=== PATIENT | male | born 1940 | race Caucasian/White ===

== ENCOUNTER 2016-08-11 21:40 | Inpatient (IN) ==
[2016-08-12] MEDS ORDERED: Acetaminophen 325 MG TABLET PO PRN (01:05)
--- NOTE | 2016-08-12 01:09 | Internal Med History&Physical ---
<Sandra Tong - Last Filed: 08/12/16 02:37> Date of Encounter: 08/12/16 Time of Encounter: 00:30 Assessment and Plan (1) Syncope Current visit: No Status: Acute - Likely secondary to hypoglycemia and/or dehydration given patient reports not eating for long time prior to syncope. Vasovagal is also possible but less likely given lack of aura prior to syncope. - Feel less likely cardiogenic given it's not associated with exertion. But given his significant cardiovascular risk factors (DM, HTN and hyperlipidemia), will still check echocardiogram and telemetry monitoring to further potential cardiac causes. - Unlikely stroke given lack of neuro deficit and negative CT head. - Per neurology note from 2013 on [facility], patient was seen for syncopal episode at that time and seizure disorder was unlikely given unremarkable EEG and brain MRI. - Check orthostatic vital signs. - Possible discharge if work-up for potential cardiac causes are negative. Qualifiers: Syncope type: unspecified Qualified Code(s): R55 - Syncope and collapse (2) Elevated troponin Current visit: Yes Status: Acute - Troponin 0.06 in [facility] but no chest pain/discomfort nor significant ischemic change on EKG. - Likely secondary to renal insufficiency. - Continue to trend troponin. (3) Renal insufficiency Current visit: Yes Status: Acute - SCr 1.79 - Per neurology note from 2013 on [facility], patient has renal insufficiency at that time. - Hydration with IV NS and avoid nephrotoxin. - Continue to monitor renal function and electrolytes. (4) Leukocytosis Current visit: Yes Status: Acute - WBC 19.3 on admission. - Unknown etiology at this time. - Will obtain blood cultures and blood smear for further evaluation. Qualifiers: Leukocytosis type: unspecified Qualified Code(s): D72.829 - Elevated white blood cell count, unspecified (5) Hypertension Current visit: Yes Status: Chronic - BP 185/125 on admission. - History of HTN but not on medications at home. - Will start Norvasc 10 mg PO daily and Coreg 12.5 mg PO BID. - Continue to monitor. Qualifiers: Hypertension type: essential hypertension Qualified Code(s): I10 - Essential (primary) hypertension (6) Diabetes mellitus Current visit: Yes Status: Chronic - History of DM but currently not on any medications. - Check Hgb A1C. Qualifiers: Diabetes mellitus type: type 2 Diabetes mellitus complication status: with unspecified complications Diabetes mellitus correction insulin use: without technician terminal and repeater use Qualified Code(s): E11.8 - Type 2 diabetes mellitus with unspecified complications (7) Hyperlipidemia Current visit: Yes Status: Chronic - Check lipid panel. Qualifiers: Hyperlipidemia type: unspecified Qualified Code(s): E78.5 - Hyperlipidemia , unspecified (8) DVT prophylaxis Current visit: Yes Status: Acute - SQ heparin. Internal Medicine - H&P: HPI Chief complaint: Syncope Admitted From: Emergency Dept ([facility]) Plans for Post Hospital Care: Home History of present illness: Mr. Kelly is a 75 year old homeless male with PMH of DM, HTN and hyperlipidemia. Patient was sent to [facility] after a syncopal episode. Patient is a poor historian and cannot recall exactly what happened and how long he passed out. What patient can remember is that he was sitting and denies lightheadedness, vision change or aura before the syncope but he is not sure if he tried to get up at that time. Patient admits not eating for long time prior to syncope. Patient's [id number] witnessed the event and per patient, he did not mention anything like jerking, tongue biting or incontinence. Patient reports no similar syncopal episode or history of seizure in the past. Patient denies chest pain/discomfort, palpitation, dyspnea, fever, chills, recent vision change, hearing change, numbness/tingling, focal weakness. Patient is full code. Past Med Surg Social Fam HX - Past Medical History Medical history: diabetes, hyperlipidemia, hypertension Psychiatric history: no psych history - Past Surgical History Surgical History: no surgical history - Social History Smoking Status: Former smoker Alcohol use: none Drug use: none - Family History Mother History Unknown: Yes Name: Carole Family Member Ethnicity: Non- Living Status: Age at : 94 Father Living Status: Hx Family Cardiac Disorders: Yes ([place]) Internal Medicine - H&P: Meds Allergies No Known Allergies Allergy (Verified 08/11/16 15:48) All Systems PM: A 10-system review of systems was performed and is negative for pertinent findings except as documented above in the HPI. - Constitutional Constitutional: no anorexia, no chills, no fever(s), no weight loss - EENT Eyes: no change in vision Ears: no decreased hearing Nose, mouth and throat: no dysphagia, no odynophagia - Cardiovascular Cardiovascular ROS IM: syncope, no chest pain, no diaphoresis, no lightheadedness, no palpitations - Respiratory Respiratory: no cough, no dyspnea, no hemoptysis - Gastrointestinal Gastrointestinal: no abdominal pain, no diarrhea, no hematochezia, no melena, no nausea, no vomiting - Genitourinary Genitourinary ROS male: no difficulty urinating, no dysuria, no hematuria - Musculoskeletal Musculoskeletal ROS IM: no arthralgias, no myalgias - Integumentary Integumentary IM: no pruritus, no rash - Neurological Neurological ROS: no focal weakness, no numbness, no tingling - Hematologic/Lymphatic Hematologic/Lymphatic: no easy bleeding, no easy bruising - Constitutional General appearance: Present: cooperative, disheveled, A&O X 3, no acute distress , answers questions appropriately - Head Head exam: Present: atraumatic, normocephalic - Eye Eye exam: Present: PERRL, conjuntiva pink, sclera anicteric - Neck Neck exam general surgery: Present: supple, trachea midline. Absent: lymphadenopathy - Respiratory Respiratory exam: Present: CTAB. Absent: accessory muscle use, rales, rhonchi, wheezes - Cardiovascular Cardiovascular exam: Present: +S1, +S2, tachycardia. Absent: diastolic murmur, gallop, rubs, systolic murmur - GI/Abdominal GI/Abdominal exam: Present: normal bowel sounds, soft, no peritoneal signs. Absent: distended, tenderness - Extremities Exam Extremities exam: Present: warm, radial pulses palpable and symetrical. Absent : calf tenderness, cyanotic, pedal edema - Neurological Exam Neurological exam: Present: CN II-XII intact, oriented X3, no focal deficits. Absent: pronater drift, facial droop, speech deficit - Skin Skin exam: Present: dry, intact, warm Internal Med - H&P Results - Labs CBC & Chem 7: 08/12/16 01:45 08/12/16 01:45 <Juanito Alonso - Last Filed: 08/12/16 06:12> Date of Encounter: 08/12/16 Assessment and Plan (1) Hypokalemia Current visit: Yes Status: Acute Internal Medicine - H&P: HPI History of present illness: Mr. Kelly is a 75 year old male All Systems PM: A 10-system review of systems was performed and is negative for pertinent findings except as documented above in the HPI. - Constitutional Vitals: Temp Pulse Resp BP Pulse Ox 98.6 F 89 14 166/112 90 08/12/16 04:57 08/12/16 04:57 08/12/16 04:57 08/12/16 04:57 08/12/16 04:57 Internal Med - H&P Results - Labs CBC & Chem 7: 08/12/16 01:45 08/12/16 01:45 Labs: Short CBC 08/12/16 Range/Units 01:45 WBC 14.7 H (4.3-11.1) K/mcL Hgb 16.9 (12.9-16.9) g/dL Hct 46.7 (37.5-50.1) % Plt Count 328 (140-400) K/mcL Neutrophils # 11.3 H (1.6-8.9) K/mcL BMP 08/12/16 01:45 Sodium 138 Potassium 3.3 L Chloride 102 Carbon Dioxide 26 BUN 22 Creatinine 1.69 H Glucose 123 H Calcium 9.1 Cardiac Enzymes 08/12/16 Range/Units 01:45 Troponin I 0.07 H* (0-0.03) ng/mL - EKG Data -: EKG Interpreted by Myself - Diagnostic Studies Chest x-ray Status: image reviewed by me CT scan - head Status: image reviewed by me - Attending Attestation I personally interviewed and examined this patient and my medical decision- making was reviewed with the Resident Physician. I agree with the documented findings, disposition and treatment plan as described.
[2016-08-12 01:56] LABS: Basophils # 0.1 K/mcL (0.0-0.2); Basophils % 0.4 %; Eosinophils % 0.2 %; Hematocrit 46.7 % (37.5-50.1); Hemoglobin 16.9 g/dL (12.9-16.9); Immature Granulocytes % 0.3 % (0-4); Lymphocytes % 13.8 %; Mean Corpuscular HGB Conc 36.2 g/dL (31.6-35.5); Mean Corpuscular Hemoglobin 30.3 pg (28.0-33.3); Mean Corpuscular Volume 83.8 fL (83.0-100.0); Mean Platelet Volume 9.3 fL (9.4-12.4); Monocytes # 1.2 K/mcL (0.0-1.3); Monocytes % 8.4 %; Neutrophils # 11.3 K/mcL (1.6-8.9); Platelet Count 328 K/mcL (140-400); Red Blood Count 5.57 M/mcL (4.19-5.50); Red Cell Distribution Width 13.1 % (11.5-14.5); Segmented Neutrophils % 76.9 %
[2016-08-12] MEDS ORDERED: 0.9 % Sodium Chloride 1,000 ML IVC SCH (02:00)
[2016-08-12 02:04] LABS: Calcium 9.1 mg/dL (8.6-10.8); Potassium 3.3 mEq/L (3.5-4.5)
[2016-08-12] MEDS: amLODIPine 5 MG TABLET PO SCH ×2 (03:31→07:50)
[2016-08-12 03:36] LABS: Hemoglobin A1C 6.5 %
[2016-08-12 03:43] LABS: Chol/HDL Ratio 7.4 (0-4.9)
[2016-08-12] MEDS: *HR* Heparin 5,000 UNIT/ML VIAL SQ SCH ×3 (05:49→21:49)
[2016-08-12] MEDS: Aspirin 81 MG TAB.CHEW PO SCH (07:50)
--- NOTE | 2016-08-12 11:03 | ECHO - Doppler Report ---
Echocardiogram Name: Nima Kelly Date of Study: 08/12/2016 Date: 1940 Ht: 74.0 in Medical Record#: [id number] Age: 75 Wt: 202.0 lb Gender: Male BSA: 2.18 Order #: [id number] Location: [facility] Room #: 2NE21 Reading Physician: Bernardo Tran MD, [facility] Printing Roller Polisher: Abhi Rock RDCS Ordering Physician: Sandra Tong DO Primary Physician: Indications: Syncope Impressions: LVEF 55-60%. No pulmonary hypertension. Mild left ventricular diastolic dysfunction. The aortic root is mildly dilated. The aortic root is 3.8cm cm. No significant valvular dysfunction. Left Ventricular Wall Motion: Rest Echo Findings All wall segments showed normal motion. Findings: Study Quality * Technically adequate exam. Right Ventricle * Normal right ventricular structure and function. Left Atrium * Normal left atrial size. Right Atrium * Normal right atrial size. Mitral Valve * Normal mitral valve structure and function. Interatrial Septum * No evidence of PFO by color Doppler. Pericardium * The pericardium appears normal. Tricuspid Valve * Trace tricuspid regurgitation. * Estimated RVSP is 25 mmHg. * Estimated RA pressure is 3-5 mmHg. * No pulmonary hypertension. * No tricuspid stenosis. Aortic Valve * Aortic valve not well visualized. * No aortic regurgitation. * No aortic stenosis. Pulmonic Valve * No pulmonic regurgitation. * No pulmonic stenosis. * Pulmonic valve is not well visualized. Left Ventricle * LVEF 55-60%. * Mild left ventricular diastolic dysfunction. IVC * Normal IVC dimensions and inspiratory collapse. Aorta * The aortic root is mildly dilated. * The aortic root is 3.8cm cm. History Hypertension Measurements: BP: 166/ 112 2D Normal Values RVIDd: 3.70 cm <2.7 cm IVSd: 1.30 cm 0.6 - 1.0 cm LVIDd: 4.60 cm 3.7 - 5.6 cm LVPWd: 1.10 cm 0.6 - 1.1 cm LVIDs: 3.40 cm 1.5 - 3.6 cm AO: 3.80 cm < 4.0 cm LA: 2.90 cm 2.0 - 4.0cm %FS: 26.10 cm >25 % LA volume: 37 Mitral Valve Peak E:.57 m/sec Peak A:1.05 m/sec E/A Ratio:0.5 Peak E' Lat Alex:3.61 cm/s Peak E' Med Alex:3.8 cm/s E/E' Lat Ratio:15.7 E/E' Med Ratio:14.9 Tricuspid Valve TV Regurg Peak Grad: 25.00mmHg TV Regurg Peak Alex: 2.48m/sec Updated by Bernardo Tran MD, [facility] on 08/12/2016 10:58:24 AM electronically signed on 08/12/2016 10:58:46 AM with status of Final Wall Motion Pinedo: 1=Normal, 2=Hypokinesis, 3=Akinesis, 4=Dyskinesis, 5=Aneurysmal, 6=Hyperkinetic, X=Not Visualized (Blank)=Missing
--- NOTE | 2016-08-12 13:40 | Internal Med Progress Note ---
Date of Encounter: 08/12/16 Time of Encounter: 10:00 - Assessment and plan (1) Syncope Current Visit: No Status: Acute Assessment and plan: Etiology is undetermined. Probably vasovagal syncope. - Continue closely cardiac monitoring to rule out arrhythmia. - Echo to rule out aortic stenosis or other cardiac problem. - Carotid duplex to rule out stenosis. - Hydrate patient with IV fluid. Qualifiers: Syncope type: unspecified Qualified Code(s): R55 - Syncope and collapse (2) Elevated troponin Current Visit: Yes Status: Acute Assessment and plan: Patient has a mild elevated troponin. Patient denies chest pain. Troponin has trend down. Possibly due to renal insufficiency. Patient has no chest pain/ SOB. (3) Renal insufficiency Current Visit: Yes Status: Acute Assessment and plan: No previous creatinine level available. Patient may have CKD. Will continue IV fluid and a follow-up her renal function. (4) Leukocytosis Current Visit: Yes Status: Acute Assessment and plan: Likely reactive, trend down already. No signs of active infection. Qualifiers: Leukocytosis type: unspecified Qualified Code(s): D72.829 - Elevated white blood cell count, unspecified (5) Hypertension Current Visit: Yes Status: Chronic Assessment and plan: Continue amlodipine. At the carvedilol. Hold the losartan and Lasix because of poor renal function. Closely monitor blood pressure. Qualifiers: Hypertension type: essential hypertension Qualified Code(s): I10 - Essential (primary) hypertension (6) Diabetes mellitus Current Visit: Yes Status: Chronic Assessment and plan: Continue diet control. Follow-up glucose level. 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 - Time Spent With Patient 25 - 35 minutes - Subjective Interval history: Patient is a 75-year-old male admitted for syncope. His past medical history is significant for diabetes, hypertension, and hyperlipidemia. He was seen and examined. He is awake alert, oriented 3. Denies dizziness or lightheaded. Patient said that the syncope happened when he sat beside the table, not feeling hungry or palpitation. Patient has no tongue bite, no urinary or fecal incontinence. Orthostatic vitals shows there is no orthostatic hypotension. We will continue cardiac monitoring to rule out arrhythmia, echo and duplex carotid also ordered. - Constitutional Vitals: Temp Pulse Resp BP Pulse Ox 97.9 F 68 15 133/91 95 08/12/16 11:38 08/12/16 11:38 08/12/16 11:38 08/12/16 11:38 08/12/16 11:38 General appearance: Present: cooperative, disheveled, A&O X 3, no acute distress , answers questions appropriately - Head Head exam: Present: atraumatic, normocephalic - Eye Eye exam: Present: PERRL, conjuntiva pink, sclera anicteric Pupils: Present: PERRL - Neck Neck exam general surgery: Present: supple, trachea midline. Absent: lymphadenopathy - Respiratory Respiratory exam: Present: CTAB. Absent: accessory muscle use, rales, rhonchi, wheezes - Cardiovascular Cardiovascular exam: Present: RRR, +S1, +S2. Absent: diastolic murmur, gallop, rubs, systolic murmur - GI/Abdominal GI/Abdominal exam: Present: normal bowel sounds, soft, no peritoneal signs. Absent: distended, tenderness - Extremities Exam Extremities exam: Present: warm, radial pulses palpable and symetrical. Absent : calf tenderness, cyanotic, pedal edema - Neurological Exam Neurological exam: Present: CN II-XII intact, oriented X3, no focal deficits. Absent: pronater drift, facial droop, speech deficit - Skin Skin exam: Present: dry, intact Internal Medicine: Result - Labs CBC & Chem 7: 08/12/16 01:45 08/12/16 01:45 Labs: Short CBC 08/12/16 Range/Units 01:45 WBC 14.7 H (4.3-11.1) K/mcL Hgb 16.9 (12.9-16.9) g/dL Hct 46.7 (37.5-50.1) % Plt Count 328 (140-400) K/mcL Neutrophils # 11.3 H (1.6-8.9) K/mcL BMP 08/12/16 01:45 Sodium 138 Potassium 3.3 L Chloride 102 Carbon Dioxide 26 BUN 22 Creatinine 1.69 H Glucose 123 H Calcium 9.1 Cardiac Enzymes 08/12/16 08/12/16 Range/Units 01:45 07:52 Troponin I 0.07 H* 0.05 H* (0-0.03) ng/mL Consult Discharge Plan - Plan [facility]errals: [facility] [Primary Care Provider] -
[2016-08-12] MEDS ORDERED: *HR* Dextrose 50 % in Water (Syg) 50 ML SYRINGE IVP PRN (14:50)
[2016-08-12] MEDS ORDERED: Dextrose Gel 15 GM PO PRN ×2 (14:50)
[2016-08-12] MEDS ORDERED: D5% in Water 1,000 ML IVC PRN (14:50)
[2016-08-12] MEDS: 0.9 % Sodium Chloride 1,000 ML IVC SCH (15:00)
[2016-08-12] MEDS: Insulin LISPRO 300 UNITS/3 ML VIAL SQ SCH ×2 (16:58→20:13)
[2016-08-13] MEDS: 0.9 % Sodium Chloride 1,000 ML IVC SCH (01:09)
[2016-08-13 04:48] LABS: Basophils # 0.1 K/mcL (0.0-0.2); Basophils % 0.5 %; Eosinophils # 0.1 K/mcL (0.0-0.6); Immature Granulocytes % 0.4 % (0-4); Lymphocytes # 2.2 K/mcL (0.6-4.6); Lymphocytes % 23.5 %; Mean Corpuscular HGB Conc 34.9 g/dL (31.6-35.5); Mean Corpuscular Hemoglobin 30.1 pg (28.0-33.3); Mean Corpuscular Volume 86.3 fL (83.0-100.0); Mean Platelet Volume 9.8 fL (9.4-12.4); Monocytes # 0.8 K/mcL (0.0-1.3); Neutrophils # 6.1 K/mcL (1.6-8.9); Platelet Count 280 K/mcL (140-400); Red Blood Count 4.52 M/mcL (4.19-5.50); Red Cell Distribution Width 13.2 % (11.5-14.5); Segmented Neutrophils % 65.6 %
[2016-08-13 04:52] LABS: Hemoglobin 13.6 g/dL (12.9-16.9)
[2016-08-13 05:03] LABS: Calcium 8.5 mg/dL (8.6-10.8); Potassium 3.6 mEq/L (3.5-4.5)
[2016-08-13] MEDS: *HR* Heparin 5,000 UNIT/ML VIAL SQ SCH ×3 (05:40→21:48)
[2016-08-13] MEDS: amLODIPine 5 MG TABLET PO SCH (08:32)
[2016-08-13] MEDS: Aspirin 81 MG TAB.CHEW PO SCH (08:33)
[2016-08-13] MEDS: Insulin LISPRO 300 UNITS/3 ML VIAL SQ SCH ×4 (08:33→21:47)
--- NOTE | 2016-08-13 12:39 | Internal Med Progress Note ---
Date of Encounter: 08/13/16 Time of Encounter: 10:00 - Assessment and plan (1) Syncope Current Visit: No Status: Acute Assessment and plan: Etiology is undetermined. Probably vasovagal syncope. - Continue closely cardiac monitoring to rule out arrhythmia. - Echo result unremarkable. - Carotid duplex to rule out stenosis. Qualifiers: Syncope type: unspecified Qualified Code(s): R55 - Syncope and collapse (2) Elevated troponin Current Visit: Yes Status: Acute Assessment and plan: Patient has a mild elevated troponin. Patient denies chest pain. Troponin has trend down. Possibly due to renal insufficiency. Patient has no chest pain/ SOB. (3) Renal insufficiency Current Visit: Yes Status: Acute Assessment and plan: No previous creatinine level available. Patient may have CKD. Will continue IV fluid and a follow-up his renal function. (4) Leukocytosis Current Visit: Yes Status: Acute Assessment and plan: Likely reactive, trend down already. No signs of active infection. Qualifiers: Leukocytosis type: unspecified Qualified Code(s): D72.829 - Elevated white blood cell count, unspecified (5) Hypertension Current Visit: Yes Status: Chronic Assessment and plan: Continue amlodipine. Add carvedilol. Hold the losartan and Lasix because of poor renal function. Closely monitor blood pressure. Qualifiers: Hypertension type: essential hypertension Qualified Code(s): I10 - Essential (primary) hypertension (6) Diabetes mellitus Current Visit: Yes Status: Chronic Assessment and plan: Continue diet control. Follow-up glucose level. Patient was on metformin at home, on hold because of poor renal function. Sliding scale coverage. Qualifiers: Diabetes mellitus type: type 2 Diabetes mellitus complication status: with unspecified complications Diabetes mellitus rn long term care insulin use: without skilled nursing use Qualified Code(s): E11.8 - Type 2 diabetes mellitus with unspecified complications (7) Hyperlipidemia Current Visit: Yes Status: Chronic Assessment and plan: On simvastatin Qualifiers: Hyperlipidemia type: unspecified Qualified Code(s): E78.5 - Hyperlipidemia , unspecified (8) DVT prophylaxis Current Visit: Yes Status: Acute Assessment and plan: Heparin subcutaneously (9) Hypokalemia Current Visit: Yes Status: Acute Assessment and plan: Improved. Follow-up potassium level. - Time Spent With Patient 25 - 35 minutes - Subjective Interval history: Patient is a 75-year-old male admitted for syncope. His past medical history is significant for diabetes, hypertension, and hyperlipidemia. He was seen and examined. He is awake alert, oriented 3. Denies dizziness or lightheaded. We will continue cardiac monitoring to rule out arrhythmia. Echo result unremarkable. Duplex carotid pending. - Constitutional Vitals: Temp Pulse Resp BP Pulse Ox 97.5 F L 79 15 163/92 94 08/13/16 11:47 08/13/16 11:47 08/13/16 11:47 08/13/16 11:47 08/13/16 11:47 General appearance: Present: cooperative, disheveled, A&O X 3, no acute distress , answers questions appropriately - Head Head exam: Present: atraumatic, normocephalic - Eye Eye exam: Present: PERRL, conjuntiva pink, sclera anicteric Pupils: Present: PERRL - Neck Neck exam general surgery: Present: supple, trachea midline. Absent: lymphadenopathy - Respiratory Respiratory exam: Present: CTAB. Absent: accessory muscle use, rales, rhonchi, wheezes - Cardiovascular Cardiovascular exam: Present: RRR, +S1, +S2. Absent: diastolic murmur, gallop, rubs, systolic murmur - GI/Abdominal GI/Abdominal exam: Present: normal bowel sounds, soft, no peritoneal signs. Absent: distended, tenderness - Extremities Exam Extremities exam: Present: warm, radial pulses palpable and symetrical. Absent : calf tenderness, cyanotic, pedal edema - Neurological Exam Neurological exam: Present: CN II-XII intact, oriented X3, no focal deficits. Absent: pronater drift, facial droop, speech deficit - Skin Skin exam: Present: dry, intact Internal Medicine: Result - Labs CBC & Chem 7: 08/13/16 04:04 08/13/16 04:04 Labs: Short CBC 08/13/16 Range/Units 04:04 WBC 9.3 (4.3-11.1) K/mcL Hgb 13.6 D (12.9-16.9) g/dL Hct 39.0 (37.5-50.1) % Plt Count 280 (140-400) K/mcL Neutrophils # 6.1 (1.6-8.9) K/mcL BMP 08/13/16 04:04 Sodium 139 Potassium 3.6 Chloride 107 Carbon Dioxide 27 BUN 24 Creatinine 1.58 H Glucose 123 H Calcium 8.5 L Consult Discharge Plan - Plan [facility]errals: [facility] [Primary Care Provider] -
[2016-08-14] MEDS: 0.9 % Sodium Chloride 1,000 ML IVC SCH (00:20)
[2016-08-14 04:32] LABS: Basophils # 0.1 K/mcL (0.0-0.2); Basophils % 0.7 %; Eosinophils # 0.1 K/mcL (0.0-0.6); Eosinophils % 1.6 %; Hematocrit 40.3 % (37.5-50.1); Hemoglobin 14.2 g/dL (12.9-16.9); Immature Granulocytes % 0.2 % (0-4); Lymphocytes # 2.2 K/mcL (0.6-4.6); Lymphocytes % 27.4 %; Mean Corpuscular HGB Conc 35.2 g/dL (31.6-35.5); Mean Corpuscular Hemoglobin 30.3 pg (28.0-33.3); Mean Corpuscular Volume 85.9 fL (83.0-100.0); Mean Platelet Volume 9.8 fL (9.4-12.4); Monocytes # 0.7 K/mcL (0.0-1.3); Monocytes % 8.9 %; Neutrophils # 4.9 K/mcL (1.6-8.9); Platelet Count 297 K/mcL (140-400); Red Blood Count 4.69 M/mcL (4.19-5.50); Red Cell Distribution Width 13.2 % (11.5-14.5); Segmented Neutrophils % 61.2 %
[2016-08-14 04:48] LABS: Albumin 2.8 g/dL (3.5-5.0); Albumin/Globulin Ratio 0.8 (1.1-2.2); Bilirubin,Total 0.5 mg/dL (0.2-1.2); Calcium 8.6 mg/dL (8.6-10.8); Globulin 3.3 g/dL (2.4-3.5); Potassium 3.2 mEq/L (3.5-4.5); Total Protein 6.1 g/dL (6.0-8.3)
[2016-08-14] MEDS: *HR* Heparin 5,000 UNIT/ML VIAL SQ SCH ×3 (05:44→20:41)
[2016-08-14] MEDS: Insulin LISPRO 300 UNITS/3 ML VIAL SQ SCH ×4 (07:57→20:07)
[2016-08-14] MEDS: amLODIPine 5 MG TABLET PO SCH (07:58)
[2016-08-14] MEDS: Aspirin 81 MG TAB.CHEW PO SCH (07:58)
--- NOTE | 2016-08-14 09:03 | Electrocardiograph Report ---
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
--- NOTE | 2016-08-14 15:45 | Internal Med Progress Note ---
Date of Encounter: 08/14/16 Time of Encounter: 09:00 - Assessment and plan (1) Syncope Current Visit: No Status: Acute Assessment and plan: Etiology is undetermined. Probably vasovagal syncope. - Continue closely cardiac monitoring to rule out arrhythmia. - Echo result unremarkable. - Carotid duplex to rule out stenosis. Result pending. Qualifiers: Syncope type: unspecified Qualified Code(s): R55 - Syncope and collapse (2) Elevated troponin Current Visit: Yes Status: Acute Assessment and plan: Patient has a mild elevated troponin. Patient denies chest pain. Troponin has trend down. Possibly due to renal insufficiency. Patient has no chest pain/ SOB. (3) Renal insufficiency Current Visit: Yes Status: Acute Assessment and plan: No previous creatinine level available. Patient may have CKD. Cr slightly improved. Will continue follow-up his renal function. (4) Leukocytosis Current Visit: Yes Status: Acute Assessment and plan: Likely reactive, trend down already. No signs of active infection. Qualifiers: Leukocytosis type: unspecified Qualified Code(s): D72.829 - Elevated white blood cell count, unspecified (5) Hypertension Current Visit: Yes Status: Chronic Assessment and plan: Continue amlodipine. Add carvedilol. Resume losartan today as Cr trend down. Closely monitor blood pressure. Qualifiers: Hypertension type: essential hypertension Qualified Code(s): I10 - Essential (primary) hypertension (6) Diabetes mellitus Current Visit: Yes Status: Chronic Assessment and plan: Continue diet control. Follow-up glucose level. Patient was on metformin at home, on hold because of poor renal function. Sliding scale coverage. Qualifiers: Diabetes mellitus type: type 2 Diabetes mellitus complication status: with unspecified complications Diabetes mellitus [facility] insulin use: without [facility] use Qualified Code(s): E11.8 - Type 2 diabetes mellitus with unspecified complications (7) Hyperlipidemia Current Visit: Yes Status: Chronic Assessment and plan: On simvastatin Qualifiers: Hyperlipidemia type: unspecified Qualified Code(s): E78.5 - Hyperlipidemia , unspecified (8) DVT prophylaxis Current Visit: Yes Status: Acute Assessment and plan: Heparin subcutaneously (9) Hypokalemia Current Visit: Yes Status: Acute Assessment and plan: Potassium supplement. Follow-up potassium level. - Time Spent With Patient 25 - 35 minutes - Subjective Interval history: Patient is a 75-year-old male admitted for syncope. His past medical history is significant for diabetes, hypertension, and hyperlipidemia. He was seen and examined. He is awake alert, oriented 3. Denies dizziness or lightheaded. We will continue cardiac monitoring to rule out arrhythmia. Echo result unremarkable. Duplex carotid pending. BP is high, will resume his losartan 100mg po daily. - Constitutional Vitals: Temp Pulse Resp BP Pulse Ox 98.5 F 75 16 164/94 96 08/14/16 11:57 08/14/16 11:57 08/14/16 11:57 08/14/16 11:57 08/14/16 11:57 General appearance: Present: cooperative, disheveled, A&O X 3, no acute distress , answers questions appropriately - Head Head exam: Present: atraumatic, normocephalic - Eye Eye exam: Present: PERRL, conjuntiva pink, sclera anicteric Pupils: Present: PERRL - Neck Neck exam general surgery: Present: supple, trachea midline. Absent: lymphadenopathy - Respiratory Respiratory exam: Present: CTAB. Absent: accessory muscle use, rales, rhonchi, wheezes - Cardiovascular Cardiovascular exam: Present: RRR, +S1, +S2. Absent: diastolic murmur, gallop, rubs, systolic murmur - GI/Abdominal GI/Abdominal exam: Present: normal bowel sounds, soft, no peritoneal signs. Absent: distended, tenderness - Extremities Exam Extremities exam: Present: warm, radial pulses palpable and symetrical. Absent : calf tenderness, cyanotic, pedal edema - Neurological Exam Neurological exam: Present: CN II-XII intact, oriented X3, no focal deficits. Absent: pronater drift, facial droop, speech deficit - Skin Skin exam: Present: dry, intact Internal Medicine: Result - Labs CBC & Chem 7: 08/14/16 03:03 08/14/16 03:03 Labs: Short CBC 08/14/16 Range/Units 03:03 WBC 8.0 (4.3-11.1) K/mcL Hgb 14.2 (12.9-16.9) g/dL Hct 40.3 (37.5-50.1) % Plt Count 297 (140-400) K/mcL Neutrophils # 4.9 (1.6-8.9) K/mcL BMP 08/14/16 03:03 Sodium 141 Potassium 3.2 L Chloride 108 Carbon Dioxide 25 BUN 19 Creatinine 1.49 H Glucose 124 H Calcium 8.6 Liver Function 08/14/16 Range/Units 03:03 Total Bilirubin 0.5 (0.2-1.2) mg/dL AST 54 H (5-34) Units/L ALT 39 (0-55) Units/L Alkaline Phosphatase 72 (38-126) Units/L Albumin 2.8 L (3.5-5.0) g/dL Consult Discharge Plan - Plan [facility]: [facility] [Primary Care Provider[facility] -
[2016-08-15] MEDS: *HR* Heparin 5,000 UNIT/ML VIAL SQ SCH (05:22)
[2016-08-15 05:59] LABS: Basophils # 0.1 K/mcL (0.0-0.2); Basophils % 0.8 %; Eosinophils # 0.1 K/mcL (0.0-0.6); Eosinophils % 0.8 %; Hematocrit 43.1 % (37.5-50.1); Hemoglobin 15.1 g/dL (12.9-16.9); Immature Granulocytes % 0.4 % (0-4); Lymphocytes % 25.1 %; Mean Corpuscular Hemoglobin 29.5 pg (28.0-33.3); Mean Corpuscular Volume 84.2 fL (83.0-100.0); Mean Platelet Volume 9.2 fL (9.4-12.4); Monocytes # 0.7 K/mcL (0.0-1.3); Monocytes % 8.6 %; Neutrophils # 5.1 K/mcL (1.6-8.9); Platelet Count 326 K/mcL (140-400); Red Blood Count 5.12 M/mcL (4.19-5.50); Red Cell Distribution Width 13.1 % (11.5-14.5); Segmented Neutrophils % 64.3 %
[2016-08-15 06:10] LABS: BUN/Creatinine Ratio 11 (6-26); Blood Urea Nitrogen 15 mg/dL (8-26); Calcium 9.1 mg/dL (8.6-10.8); Carbon Dioxide 25 mEq/L (19-29); Chloride 105 mEq/L (98-109); Glucose 139 mg/dL (70-99); Osmolality,Calculated 291 (280-300); Potassium 3.4 mEq/L (3.5-4.5); Sodium 139 mEq/L (136-145); eGFR For African Americans > 60 (> 60); eGFR For Non-African Americans 54 (> 60)
--- NOTE | 2016-08-15 07:26 | Carotid Imaging Report ---
Carotid Duplex Patient Name:Nima Kelly Order Number:[id number] Procedure Date:08/12/2016 Date:1940ge:75 yrs Gender:Male Location:[facility] Room #: 2ne21 Marketing Data Specialist:Abhi Rock BRENT Referring MD:DO Oneida Hutton MD:Rizwan Gregory MD Primary Indications:Occlusion and stenosis of carotid artery without mention of cerebral infarction Impressions: The bilateral carotid arteries have minimal plaque throughout. Findings Carotid Duplex: Right: The right proximal common carotid artery has a PSV of 63 cm/s and a EDV of 12 cm/s. There is smooth heterogeneous plaque. The right mid common carotid artery has a PSV of 77 cm/s and a EDV of 17 cm/s. There is smooth heterogeneous plaque. The right distal common carotid artery has a PSV of 75 cm/s and a EDV of 17 cm/s. There is smooth heterogeneous plaque. The right bifurcation has a PSV of 58 cm/s and a EDV of 15 cm/s. There is smooth heterogeneous plaque. The right proximal internal carotid artery has a PSV of 68 cm/s and a EDV of 12 cm/s. There is smooth heterogeneous plaque. The right mid internal carotid artery has a PSV of 48 cm/s and a EDV of 11 cm/s. There is smooth heterogeneous plaque. The right distal internal carotid artery has a PSV of 49 cm/s and a EDV of 14 cm/s. There is smooth heterogeneous plaque. The right eca has a PSV of 75 cm/s and a EDV of 9 cm/s. The right vertebral artery has a PSV of 25 cm/s and a EDV of 4 cm/s. Left: The left proximal common carotid artery has a PSV of 91 cm/s and a EDV of 15 cm/s. There is smooth heterogeneous plaque. The left mid common carotid artery has a PSV of 74 cm/s and a EDV of 13 cm/s. There is smooth heterogeneous plaque. The left distal common carotid artery has a PSV of 58 cm/s and a EDV of 12 cm/s. There is smooth heterogeneous plaque. The left bifurcation has a PSV of 33 cm/s and a EDV of 7 cm/s. There is smooth heterogeneous plaque. The left proximal internal carotid artery has a PSV of 59 cm/s and a EDV of 11 cm/s. There is smooth heterogeneous plaque. The left mid internal carotid artery has a PSV of 59 cm/s and a EDV of 15 cm/s. There is smooth heterogeneous plaque. The left distal internal carotid artery has a PSV of 52 cm/s and a EDV of 16 cm/s. There is smooth heterogeneous plaque. The left eca has a PSV of 84 cm/s and a EDV of 8 cm/s. The left vertebral artery has a PSV of 27 cm/s and a EDV of 10 cm/s. Prior Study: No change compared to prior study dated: 05/07/2013. Carotid Results Right PSV EDV Assessment Proximal CCA 63 12 Non Stenotic Plaque Mid CCA 77 17 Non Stenotic Plaque Distal CCA 75 17 Non Stenotic Plaque Bifurcation 58 15 Non Stenotic Plaque Proximal ICA 68 12 Non Stenotic Plaque Mid ICA 48 11 Non Stenotic Plaque Distal ICA 49 14 Non Stenotic Plaque ECA 75 9 Normal Vertebral Artery 25 4 Normal Left PSV EDV Assessment Proximal CCA 91 15 Non Stenotic Plaque Mid CCA 74 13 Non Stenotic Plaque Distal CCA 58 12 Non Stenotic Plaque Bifurcation 33 7 Non Stenotic Plaque Proximal ICA 59 11 Non Stenotic Plaque Mid ICA 59 15 Non Stenotic Plaque Distal ICA 52 16 Non Stenotic Plaque ECA 84 8 Normal Vertebral Artery 27 10 Normal Ratio's Right ICA/CCA Ratio: 2.00 ICA/CCA Values: 68/77 Left ICA/CCA Values: 59/74 Updated by Rizwan Gregory MD on 08/15/2016 7:19:33 AM electronically signed on 08/15/2016 7:21:51 AM with status of Final
[2016-08-15] MEDS ORDERED: Ondansetron 4 MG/2 ML VIAL ONE (08:24)
[2016-08-15] MEDS: Insulin LISPRO 300 UNITS/3 ML VIAL SQ SCH ×2 (08:28→12:11)
[2016-08-15] MEDS: Aspirin 81 MG TAB.CHEW PO SCH (08:29)
[2016-08-15] MEDS: amLODIPine 5 MG TABLET PO SCH (08:29)
[2016-08-15] MEDS: Ondansetron 4 MG/2 ML VIAL IVP PRN ×2 (08:30→08:56)
--- NOTE | 2016-08-15 10:13 | Discharge Summary ---
<Luisa Matthews - Last Filed: 08/15/16 13:10> Date of Encounter: 08/15/16 Time of Encounter: 10:00 - Discharge Diagnosis (1) Syncope Priority: Primary Status: Acute Qualifiers: Syncope type: unspecified Qualified Code(s): R55 - Syncope and collapse (2) Elevated troponin Priority: Secondary Status: Acute (3) Renal insufficiency Priority: Secondary Status: Acute (4) Leukocytosis Priority: Secondary Status: Resolved Qualifiers: Leukocytosis type: unspecified Qualified Code(s): D72.829 - Elevated white blood cell count, unspecified (5) Hypertension Priority: Secondary Status: Chronic Qualifiers: Hypertension type: essential hypertension Qualified Code(s): I10 - Essential (primary) hypertension (6) Diabetes mellitus Priority: Secondary Status: Chronic Qualifiers: Diabetes mellitus type: type 2 Diabetes mellitus complication status: with unspecified complications 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: without [facility] [employer] termite use Qualified Code(s): E11.8 - Type 2 diabetes mellitus with unspecified complications (7) Hyperlipidemia Priority: Secondary Status: Chronic Qualifiers: Hyperlipidemia type: unspecified Qualified Code(s): E78.5 - Hyperlipidemia , unspecified (8) Hypokalemia Priority: Secondary Status: Acute (9) DVT prophylaxis Priority: Secondary Status: Acute - Discharge Medications Prescriptions: Aspirin 81 mg PO DAILY #30 tab.chew Carvedilol [Coreg] 25 mg PO BIDWM #60 tablet Home Medications: Amlodipine Besylate 10 mg PO DAILY 08/12/16 [History] Bicalutamide [Casodex] 50 mg PO DAILY 08/12/16 [History] Furosemide [Lasix] 20 mg PO DAILY 08/12/16 [History] Gemfibrozil [Lopid] 600 mg PO BIDWM 08/12/16 [History] Insulin Glargine [Lantus] 83 unit SQ HS 08/12/16 [History] Losartan Potassium [Cozaar] 100 mg PO HS 08/12/16 [History] Metformin HCl [Glucophage] 1,000 mg PO BID 08/12/16 [History] Potassium Chloride [Klor-Con 10] 10 meq PO DAILY 08/12/16 [History] TraZODone 50 mg PO HS PRN 08/12/16 [History] Acetaminophen [Tylenol] 650 mg PO Q6HR PRN #0 tablet 08/15/16 [Rx] Aspirin 81 mg PO DAILY #30 tab.chew 08/15/16 [Rx] Carvedilol [Coreg] 25 mg PO BIDWM #60 tablet 08/15/16 [Rx] Simvastatin [Zocor] 40 mg PO HS tablet 08/15/16 [Rx] Allergies/Adverse Reactions: Allergies No Known Allergies Allergy (Verified 08/11/16 15:48) Date of admission: 08/14/16 16:23 Primary care physician: PCP [facility] Consults: 08/12/16 01:07 Consult to Conference Coordinator [CONS] Routine Reason for Consult: Homeless. Appreciate potential assistance regarding his placement. - Patient Status Disposition: Home, Self-Care Condition: Good Functional capacity at discharge: independent ambulation Overall status at discharge: patient is back to baseline - Discharge Instructions Instructions: Aspirin (By mouth), Carvedilol (By mouth), Syncope (DC), Diabetes Mellitus Type 2 in Adults (DC), Chronic Hypertension (DC) Follow [facility]: [facility] - 08/23/16 11:00 am Additional Instructions: Plan: follow up with PCP within one week, follow up in renal insufficiency. stop atenolol start taking carvedilol and aspirin BMP in 1 week take all meds as directed. return to emergency department if symptoms persist. - Diet and Activity Activity: increase activity as tolerated Diet: diabetic diet, low fat, low cholesterol, low salt diet Hospital course: Mr. Kelly is a 75 year old male with PMHx of DM, HTN, HLD. Patient was sent to [place] ED after a syncopal episode. He did not remember what happened at that time, or how long he had passed out for. During admission, patient had admitted to not eating and drinking properly prior to his syncopal episode. Patient's father in law witnessed the syncopal episode, and denied jerking, tongue biting, or incontinence. He denies having prior syncopal episodes of history of seizure in the past. During his hospital stay, the patient had significant work up for syncope. Head CT showed no acute intracranial abnormality, global parenchymal vollme loss with chronic microvascular ischemic changes, scattered atherosclerosis. chest xray showed no acute findings. Carotid imaging showed bilateral minimal plaque. Echo showed LVEF 55-60%, no pulmonary hypertension, mild diastolic LV dysfunction, mildly dilated aortic root, no valvular dysfunction. Orthostatic vitals were within normal limits. EKG showed sinus rhythm with left axis deviation. According to records, neurology note from 2012 showed patient was seen for syncopal episode, at that time seizure disorder was unlikely given unremarkable EEG and brain MRI. The cause of syncope was likely related to hypoglycemia/dehydration, as patient stated he had not been eating or drinking well prior to the syncopal episode. Patient was educated on diet, exercise, glucose check regularly. Patient was found to have elevated Cr, so it is important to follow up with PCP regarding this. Plan: follow up with PCP within one week, follow up on elevated Creatinine. stop atenolol start taking carvedilol and aspirin BMP in 1 week take all meds as directed. - Time Spent with Patient Total time spent providing and/or coordinating discharge services: - Constitutional Vitals: Temp Pulse Resp BP Pulse Ox 98.3 F 77 15 152/83 96 08/15/16 07:55 08/15/16 09:32 08/15/16 07:55 08/15/16 09:32 08/15/16 07:55 General appearance: Present: cooperative, disheveled, A&O X 3, no acute distress , answers questions appropriately - Head Head exam: Present: atraumatic, normocephalic - Neck Neck exam general surgery: Present: supple, trachea midline - Respiratory Respiratory exam: Present: CTAB - Cardiovascular Cardiovascular exam: Present: RRR - GI/Abdominal GI/Abdominal exam: Present: normal bowel sounds, soft. Absent: distended - Extremities Exam Extremities exam: Present: normal capillary refill. 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 Appreciate potential assistance regarding his placement. Hospital course: Mr. Kelly is a 75 year old male - Time Spent with Patient Total time spent providing and/or coordinating discharge services: - Constitutional Vitals: Temp Pulse Resp BP Pulse Ox 98.6 F 69 16 156/97 96 08/15/16 12:06 08/15/16 12:06 08/15/16 12:06 08/15/16 12:06 08/15/16 12:06 - Attending Attestation I examined this patient and my medical decision-making was reviewed with the Resident Physician on 08/15/16. I agree with the documented findings, disposition and treatment plan as described except to the extent set forth below. Mr. Kelly is doing OK. Carotid duplex minimal plaque. Vitals are stable and he is afebrile. He is ready for d/c today. Exam Alert. Comfortable No wheeze Plan D/C home today Follow up with PCP.
[2016-08-15 12:11] VITALS: BP 156/97
== END 2016-08-15 13:54 | disposition home or self-care (01) | DRG 639 ==
LOC: 2NENU → SUATTDRO 23:44
PROVIDERS: ADMIT Internal Medicine; ATTEND Internal Medicine